=== PATIENT | male | born 1980 | race Caucasian/White ===

== ENCOUNTER 2017-11-16 16:47 | Emergency (ER) | payer OTHER ==
[~2017-11-16] VITALS: Ht 185.4 cm; Wt 151.0 kg
[2017-11-16 17:07] LABS: HEMATOCRIT 39.8 % (38.0-50.0); MCHC 35.2 G/DL (30.0-36.0); MCV 82.4 FL (86-99); PLATELET COUNT 176 K/uL (156-360); RBC DIS.WIDTH-CV 11.9 % (11.8-14.6); RBC DIS.WIDTH-SD 35.8 % (39-53); RED BLOOD COUNT 4.83 M/uL (4.00-5.50); WHITE BLOOD COUNT 7.7 K/uL (4.1-10.2)
[2017-11-16 17:15] LABS: ALBUMIN 4.2 g/dL (3.2-4.8); CHLORIDE 108 mEq/L (99-109); POTASSIUM 3.8 mEq/L (3.7-5.4)
[2017-11-16 17:16] LABS: SODIUM 140 mEq/L (136-147)
[2017-11-16 17:18] LABS: GLUCOSE 90 mg/dL (70-99); TOTAL PROTEIN 6.7 g/dL (6.4-8.3)
[2017-11-16 17:20] LABS: TOTAL BILIRUBIN 0.6 mg/dL (0.0-1.0)
[2017-11-16 17:21] LABS: ALKALINE PHOSPHATASE 63 IU/L (3-129); CREATININE 1.2 mg/dL (0.6-1.3)
[2017-11-16 17:23] LABS: AST (GOT) 59 IU/L (2-34); UREA NITROGEN (BUN) 20 mg/dL (9-23)
[2017-11-16 17:24] LABS: ALT (GPT) 89 IU/L (3-49)
[2017-11-16 17:37] LABS: GFR ESTIMATE (CALCULATED) > 59 mL/min/ (58.99-99999)
[2017-11-16 17:45] LABS: APPEARANCE CLOUDY ((CLEAR)); BILIRUBIN NEGATIVE; BLOOD LARGE; COLOR YELLOW ((YELLOW)); GLUCOSE (STRIP) NEGATIVE; KETONES 20; LEUKOCYTES NEGATIVE; NITRITE NEGATIVE; PROTEIN (STRIP) 30; SPECIFIC GRAVITY 1.026 (1.000-1.030); UROBILINOGEN 0.2 MG/DL (0.2-1.0)
[2017-11-16 18:15] LABS: EPITHELIAL CELLS NONE SEEN /HPF; WHITE BLOOD CELLS NONE SEEN /HPF (0-5)
[2017-11-16 18:16] LABS: BACTERIA 1+ /HPF; MUCUS NONE SEEN /LPF; URIC ACID CRYSTALS 2+ /HPF
[2017-11-16] MEDS ORDERED: NORCO 5/3251 TABLET PO (19:23)
[2017-11-16 19:56] VITALS: BP 131/74
== END 2017-11-16 19:58 | disposition home or self-care (01) ==
LOC: EME 16:47 → RME 16:47
PROVIDERS: Physician Assistant
DX: R10.9 Unspecified abdominal pain (principal); R31.9 Hematuria, unspecified; M54.5 Low back pain; R30.0 Dysuria; R11.0 Nausea; K57.30 Diverticulosis of large intestine without perforation or abscess without bleeding; K76.0 Fatty (change of) liver, not elsewhere classified; K40.90 Unilateral inguinal hernia, without obstruction or gangrene, not specified as recurrent; M43.06 Spondylolysis, lumbar region
CPT/HCPCS: 74176; 80053; 81003; 85027; 99281; 99285; J1885